=== PATIENT | female | born 1955 | race Caucasian/White ===

== ENCOUNTER 2022-01-30 15:29 | Inpatient (IN) | payer OTHER, SELFPAY ==
[2022-01-30] VITALS (12 sets, daily range): BP systolic 101–144; BP diastolic 76–105; PULSE 104–148; RESP 12–20; TEMP 36.4–36.9; O2SAT 93–99; BMI 34.4
--- NOTE | ~2022-01-30 | XR_ITS ---
EXAMINATION: XR chest 2V Exam Date/Time: 01/30/2022 15:55 CDT HISTORY: afib RVR X 1MONTH, SOB X 1 MONTH, NO OTHER CHEST COMPLAINTS Comparison: Screening mammography 02/08/2018. RESULT: Lines, tubes, and devices: None. Lungs and pleura: Senescent change and bibasilar atelectasis/scar. Cardiomediastinal silhouette: Stable. Other: No acute osseous or upper abdominal finding. Bilateral breast soft tissue calcification. IMPRESSION: No acute cardiopulmonary process. Reviewed, dictated and finalized at location K.
--- NOTE | ~2022-01-30 | CT_ITS ---
EXAMINATION: CT abdomen pelvis wo con DATE: 02/01/2022 12:32 INDICATION: Colitis. TECHNIQUE: Computed tomography (CT) of the abdomen and pelvis was performed without intravenous contr ast. Automated exposure control and iterative reconstruction technique were employed. The dose-length product was 921.47 mGy-cm. COMPARISON: CT abdomen and pelvis 06/02/2017 FINDINGS: The visualized portions of the lung bases demonstrate mild atelectasis. There is mild scarr ing in paraspinal right lower lobe. No pleural effusion. The heart size is normal. There are coronary artery calcifications. No pericardial effusion. The liver and spleen are normal. There are changes o f cholecystectomy. The pancreas, adrenal glands, and right kidney are normal. There is a 10 mm cyst i n left kidney. There is no urolithiasis. There is diverticulosis of the colon without evidence of div erticulitis. The appendix is normal. There are no pathologically enlarged lymph nodes. There is no fr ee intraperitoneal fluid. There is a total right hip arthroplasty. There is moderate lumbar spondylos is. IMPRESSION: 1. No specific evidence of colitis. Reviewed, dictated and finalized at location A.
--- NOTE | 2022-01-30 15:35 | ECG_ITS ---
Measurements Intervals [place] Rate: 148 P: IA: 0 QRS: 24 QRSD: 82 T: -42 QT: 283 QTc: 444 Interpretive Statements ATRIAL FIBRILLATION WITH RAPID VENTRICULAR RESPONSE NONSPECIFIC ST & T-WAVE ABNORMALITY ABNORMAL ECG NO PREVIOUS ECG AVAILABLE FOR COMPARISON Electronically Signed On 01-30-2022 17:11:40 CDT by Shiva Rowell M.D.
[2022-01-30 15:46] LABS: Basophils Absolute Auto 0.1 K/mm3 (0.0-0.1); Basophils Percent Auto 0.7 % (0.2-1.2); Eosinophils Absolute Auto 0.1 K/mm3 (0-0.3); Hematocrit 39.6 % (37.0-47.0); Hemoglobin 13.2 g/dL (12.0-15.0); Immature Granulocyte Absolute 0.02 K/mm3 (0.00-0.031); Immature Granulocyte Percent A 0.2 % (0-0.5); Lymphocytes Absolute Auto 1.49 K/mm3 (0.9-3.2); Lymphocytes Percent Auto 17.3 % (18.3-44.2); Mean Corpuscular HGB Conc 33.3 g/dl (32-36); Mean Corpuscular Hemoglobin 31.1 pg (26-34); Mean Corpuscular Volume 93.2 fl (80-100); Monocytes Absolute Auto 0.7 K/mm3 (0.1-0.6); Monocytes Percent Auto 7.6 % (2.6-8.5); Neutrophils Absolute Auto 6.3 K/mm3 (1.3-6.7); Neutrophils Percent Auto 73.2 % (45.5-73.1); Platelet Count Result 268 k/mm3 (150-375); Red Blood Count 4.25 M/mm3 (4.2-5.4); Red Cell Distribution Width 13.7 % (11.5-14.5); White Blood Count 8.6 K/mm3 (4.5-10.0)
[2022-01-30 16:00] LABS: INR 1.1; Prothrombin Time 13.7 Seconds (11.1-14.7)
[2022-01-30 16:02] LABS: Alanine Aminotransferase 27 U/L (6-35); Anion Gap 14 mmol/L (8-16); Aspartate Amino Transferase 48 U/L (14-36); Bilirubin,Total 1.5 mg/dL (0.2-1.3); Blood Urea Nitrogen 15 mg/dL (7-17); Calcium 9.3 mg/dL (8.4-10.2); Carbon Dioxide 28 mmol/L (22-30); Chloride 100 mmol/L (98-107); Estimated CRCL calculation 88 ml/min; Estimated Glomerular Filt Rate > 60; Glucose 121 mg/dL (65-110); Partial Thromboplastin Time 26.6 SECONDS (22.3-36.8); Potassium 3.8 mmol/L (3.4-5.0); Sodium 142 mmol/L (137-145)
[2022-01-30 16:03] LABS: Albumin Level 4.8 g/dL (3.5-5.1); Alkaline Phosphatase 54 U/L (38-126); Lipase 93 U/L (23-300)
[2022-01-30] MEDS: dilTIAZem HCl INJ 25 MG/5 ML VIAL 15 MG IV PUSH (16:08)
[2022-01-30 16:13] LABS: Troponin I 0.015 ng/mL (0.000-0.034)
--- NOTE | 2022-01-30 17:37 | ED.GENADULT ---
HPI - General Adult General Chief complaint: Arrhythmia/Palpitations Stated complaint: afib rvr Time Seen by Provider: 01/30/22 15:37 History of Present Illness HPI narrative: Patient is a 66-year-old female who presents to the ER with diarrhea. Ongoing over the last 2 months. It is worsened the point where she is having 15 loose stools a day. They are large volume and clear/watery. No fevers or chills or sweats. No chest pain. Patient found to be in A. fib RVR here. Patient was recently diagnosed with A. fib RVR in [facility] when she went in to be evaluated for colitis. She has been taking metoprolol. She reports 2 weeks ago she was at [facility] in [place] where she was diagnosed with cholecystitis and once again was in A. fib with RVR. She has not been anticoagulated due to her colitis. She underwent successful surgery and has been at home. Patient has had several courses of antibiotics due to her colitis and her cholecystitis. No history of C. difficile. Her entry rep is Dr. Hutton. Related Data Allergies Allergy/AdvReac Type Severity Reaction Status Date / Time erythromycin base Allergy Unknown SEVERE ABD Verified 01/30/22 15:37 PAIN Penicillins Allergy Unknown RASH Verified 01/30/22 15:37 Review of Systems Review of Systems: All systems reviewed & are unremarkable except as noted in HPI and below Constitutional: Constitutional: Denies chills, Denies fatigue and Denies fever(s) ENT: Denies nasal congestion and Denies sore throat Cardiovascular: Cardiovascular: Denies chest pain, Reports rapid heart rate and Denies radiating jaw, neck or arm pain Gastrointestinal: Gastrointestinal: Denies abdominal pain, Reports diarrhea, Denies nausea and Denies vomiting Genitourinary: Genitourinary: Denies nocturia and Denies dysuria Integumentary/Breasts: Skin/Breast: Denies erythema and Denies rash [facility] Past Medical History Medical History (Updated 01/30/22 @ 18:30 by Andrea Porras MD) Anxiety Atrial fibrillation Breast cancer Depression GERD (gastroesophageal reflux disease) Hypertension Surgical History Surgical History (Updated 01/30/22 @ 18:26 by Andrea Porras MD) History of hip replacement History of hysterectomy History of knee replacement, total History of tonsillectomy Social History Social History (Updated 01/30/22 @ 18:26 by Andrea Porras MD) Smoking status: Never smoker Exam Narrative: GENERAL: Well-appearing, well-nourished, and in no acute distress. HEAD: Normocephalic, atraumatic. ENT: Mucous membranes moist. CHEST: Clear to auscultation. No respiratory distress. HEART: Irregular regular rate and rhythm that is tachycardic. Normal peripheral pulses. ABDOMEN: Soft, nontender, nondistended. EXTREMITIES: Normal range of motion. No edema. SKIN: Warm, dry, no rash. NEURO: Alert and oriented x3. PSYCH: Normal mood and affect. Course Course Emergency Course: Patient resting comfortably. Difficulty controlling heart rate despite IV push of diltiazem. Will place on a drip. Also have requested patient to provide a stool sample as I am concerned she may have C. difficile colitis given her frequent large-volume watery stools. Vital Signs Vital signs: Vital Signs Pulse Rate 147 H 01/30/22 15:31 Respiratory Rate 13 01/30/22 15:31 Blood Pressure 144/105 H 01/30/22 15:31 Pulse Oximetry 99 01/30/22 15:31 Oxygen Delivery Room Air 01/30/22 15:31 Pulse Rate 130 H 01/30/22 18:06 Respiratory Rate 13 01/30/22 18:06 Blood Pressure 125/76 01/30/22 18:06 Pulse Oximetry 97 01/30/22 18:06 Oxygen Delivery Room Air 01/30/22 15:31 Medical Decision Making Vital Signs Vital Signs: Vital Signs Pulse Rate 147 H 01/30/22 15:31 Respiratory Rate 13 01/30/22 15:31 Blood Pressure 144/105 H 01/30/22 15:31 Pulse Oximetry 99 01/30/22 15:31 Oxygen Delivery Room Air 01/30/22 15:31 Pulse Rate 130 H
[2022-01-30] MEDS: dilTIAZem 100 MG/100 ML 100 MG/100 ML BAG IV CONT (17:46)
[2022-01-30] MEDS: dilTIAZem HCl INJ 25 MG/5 ML VIAL 10 MG IV PUSH (17:59)
[2022-01-30] MEDS: MORPHINE SULFATE (*CRX) 4 MG/ML INJ IV PUSH (18:02)
--- NOTE | 2022-01-30 18:48 | ADMGEN ---
This patient, Kacey Foster, was admitted to IMU Room 210-01. Patient/family oriented to hospital policies and general routines including ID bracelet, bed and alarms, visiting hours, pain management, procedures, bathroom and other care routines, personal items, smoking policy, room service/diet, and visiting hours. Information on how to activate the Rapid Response Team has been discussed. Patient/Family are encouraged to report perceived risks to care and to ask questions if they do not understand what they are told or what they should do.
--- NOTE | 2022-01-30 20:30 | PM.IMHP ---
H&P: HPI History of Present Illness Date/Time: 01/30/22 20:30 Chief Complaint: Diarrhea, rapid heart rate. Narrative: This is a pleasant 66-year-old with a relatively recent diagnosis of paroxysmal atrial fibrillation, hypertension, hyperlipidemia, hypothyroidism, and chronic pain syndrome who presented to the emergency department from her primary care provider's for evaluation of diarrhea and rapid heart rate. About a month ago she was visiting [place], [place] and she developed diarrhea and rectal bleeding. She was hospitalized at [facility] and the bleeding was attributed to what sounds like infectious colitis. During that stay she was also noted to be in atrial fibrillation with rapid ventricular response which was a new diagnosis for her and she really had no symptoms. She was discharged on metoprolol but was not given anticoagulation due to the GI bleeding. She completed a course of antibiotics with resolution of her symptoms however about 2 weeks thereafter she once again developed abdominal pain. She was hospitalized at [facility] in [place] where she ended up having a laparoscopic cholecystectomy for cholecystitis. She saw her surgeon in follow-up last week and everything was looking good. Unfortunately on Saturday morning she awoke from sleep with abdominal cramping and she reports having innumerable bouts of malodorous, bright yellow liquid diarrhea. Later that evening she developed nausea and had several episodes of projectile vomiting. She has not had much to eat since that time and due to ongoing diarrhea and weakness she made an appointment with her doctor today. In clinic she was once again found to be in atrial fibrillation with rapid ventricular response and was sent to the ER where she was started on a Cardizem drip with improvement in her rate. She has no sensations of fluttering, racing heart, shortness of breath, etc. I believe she has been taking metoprolol succinate 25 milligrams daily and she reports taking that this morning. At the time my evaluation her main complaint is that of abdominal cramping and discomfort in the left lower quadrant. She has not been on antibiotics for a couple of weeks. She has no known history of C diff. She had a colonoscopy several years ago and has no known history of inflammatory bowel disease. She has not eaten much last couple of days but she is feeling better at this time and is asking for food. Her diarrhea has slowed down somewhat today. She has not had any vomiting for well over 12 hours. She also denies fever, chills, and sweats. She has not noticed any blood or mucus in the stool. Review of Systems Review of Systems: Twelve systems were reviewed. Weight has remained stable. No history of sleep apnea. She does snore loudly and reports that she has exhausted almost all day. She does not fall asleep at inopportune times. No significant caffeine use. She drinks 1 to 2 mixed drinks most nights of the week. She believes that her TSH was normal recently. She has not had exertional chest pain or shortness of breath. No syncope or presyncope. No hematemesis, melena, or hematochezia. She has noticed a small amount of mucus in the stool. She has chronic neck and back pain and is on long-term opiates. Except as documented, all other systems were reviewed and are negative. [facility] Past Medical History Medical History (Updated 01/30/22 @ 21:42 by Renetta Mike PA-C) Anxiety Cancer of right breast Status post lumpectomy and radiation therapy. Chronic pain syndrome Chronic prescription opiate use Depression Gastric ulcer Gastroesophageal reflux disease Hepatitis C Secondary to blood transfusion received in 1973. She completed treatment in 2013. Hyperlipidemia Hypertension Hypothyroidism Paroxysmal atrial fibrillation Surgical History Surgical History (Updated 01/30/22 @ 21:34 by Renetta Mike PA-C) History of bilateral knee replacement History of cataract extrac
[2022-01-30] MEDS: MORPHINE SULFATE (*CRX) 4 MG/ML INJ 2 MG IV PUSH (21:38)
[2022-01-30] MEDS: METOPROLOL TARTRATE 50 MG TAB PO (21:59)
[2022-01-30 22:20] LABS: CRP 0.8 mg/dL (<1.0); Magnesium 1.7 mg/dL (1.6-2.3)
[2022-01-30 22:29] LABS: Troponin I 0.029 ng/mL (0.000-0.034)
[2022-01-30] MEDS: HYDROcodone/acetaminophen (*CRX) 10-325 MG TABLET 1 TAB PO (22:51)
[2022-01-30] MEDS: QUEtiapine FUMARATE 100 MG TABLET PO (22:52)
[2022-01-30] MEDS: hydrOXYzine HCL 25 MG TABLET PO (22:52)
[2022-01-30] MEDS: GABAPENTIN 300 MG CAPSULE 900 MG PO (22:52)
[2022-01-31] VITALS (19 sets, daily range): BP systolic 100–125; BP diastolic 60–78; PULSE 52–114; RESP 18–22; TEMP 36.1–36.5; O2SAT 92–100
[2022-01-31] MEDS: dilTIAZem 100 MG/100 ML 100 MG/100 ML BAG 10 MG IV CONT (02:06)
[2022-01-31] MEDS: LEVOTHYROXINE SODIUM 50 MCG TABLET PO (06:29)
[2022-01-31 06:45] LABS: Free T4 Free Thyroxine Reflex 1.25 ng/dL (0.78-2.19)
[2022-01-31] MEDS: SODIUM CHLORIDE 0.9% IV 250 ML 999 ML IV CONT (06:52)
[2022-01-31 07:44] LABS: Total Triiodothyronine (T3) 1.05 NG/ML (0.97-1.69)
[2022-01-31] MEDS: METOPROLOL TARTRATE 50 MG TAB PO ×3 (08:44→20:43)
[2022-01-31] MEDS: GABAPENTIN 300 MG CAPSULE 600 MG PO (08:44)
[2022-01-31] MEDS: ATORVASTATIN 20 MG TABLET PO (08:45)
[2022-01-31] MEDS: FUROSEMIDE 40 MG TABLET PO (08:45)
[2022-01-31 09:39] LABS: Basophils Percent Auto 0.7 % (0.2-1.2); Eosinophils Absolute Auto 0.3 K/mm3 (0-0.3); Eosinophils Percent Auto 4.9 % (0-4.4); Hematocrit 35.7 % (37.0-47.0); Hemoglobin 11.4 g/dL (12.0-15.0); Immature Granulocyte Absolute 0.01 K/mm3 (0.00-0.031); Immature Granulocyte Percent A 0.2 % (0-0.5); Lymphocytes Absolute Auto 1.82 K/mm3 (0.9-3.2); Lymphocytes Percent Auto 30.5 % (18.3-44.2); Mean Corpuscular HGB Conc 31.9 g/dl (32-36); Mean Corpuscular Hemoglobin 30.9 pg (26-34); Mean Corpuscular Volume 96.7 fl (80-100); Mean Platelet Volume 9.8 fl (7.4-10.4); Monocytes Absolute Auto 0.4 K/mm3 (0.1-0.6); Monocytes Percent Auto 6.9 % (2.6-8.5); Neutrophils Absolute Auto 3.4 K/mm3 (1.3-6.7); Neutrophils Percent Auto 56.8 % (45.5-73.1); Platelet Count Result 245 k/mm3 (150-375); Red Blood Count 3.69 M/mm3 (4.2-5.4); Red Cell Distribution Width 14.2 % (11.5-14.5)
[2022-01-31 09:55] LABS: Anion Gap 10 mmol/L (8-16); Blood Urea Nitrogen 16 mg/dL (7-17); Calcium 8.6 mg/dL (8.4-10.2); Carbon Dioxide 29 mmol/L (22-30); Chloride 102 mmol/L (98-107); Estimated CRCL calculation 75 ml/min; Estimated Glomerular Filt Rate > 60; Glucose 124 mg/dL (65-110); Potassium 3.1 mmol/L (3.4-5.0); Sodium 141 mmol/L (137-145)
--- NOTE | 2022-01-31 10:35 | PM.CNCAR ---
Assessment and Plan Assessment and plan (1) Atrial fibrillation with rapid ventricular response: Code(s): I48.91 - Unspecified atrial fibrillation Status: Acute Assessment and Plan: Minimally symptomatic heart rate exacerbated due to acute illness under much better control intravenous diltiazem and oral metoprolol. Will wean diltiazem infusion to 5 milligrams/hour then discontinue and observe tolerance on metoprolol tartrate 50 mg twice daily. Discussed likely need up titrate beta-kim therapy for adequate heart rate control although anticipate this will improve as her clinical status stabilizes. Monitor and replete electrolytes keep potassium 4.0 and magnesium in 2.0. Hold Lasix for now as patient high risk for dehydration. CHADS2-Vasc score 3 (female, age >65, HTN). Systemic anticoagulation is appropriate for CV risk reduction. We did discussed ongoing risk for stroke without anticoagulation given persistence of atrial fibrillation. I suspect clinically she has been in persistent AFib since diagnosis and she is not a candidate for cardioversion unless she can be anticoagulated. (2) Hypothyroidism: Code(s): E03.9 - Hypothyroidism, unspecified Status: Acute Assessment and Plan: Mild TSH elevation around 6 likely subclinical. Defer management to primary service. (3) Diarrhea: Code(s): R19.7 - Diarrhea, unspecified Status: Acute Assessment and Plan: Clinical suspicion related to colitis of unknown etiology. Consider GI consultation, endoscopy as appropriate. Further workup defer to primary service and GI. No leukocytosis, H&H stable. (4) History of GI bleed: Code(s): Z87.19 - Personal history of other diseases of the digestive system Status: Acute Assessment and Plan: H&H stable, right mild anemia. No evidence for active bleed. She may be a reasonable candidate for anticoagulation, however, given her recent GIB workup to day this remains unclear. Furthermore, the decision to avoid anticoagulation has been made previously and infact referred for Watchman (VERO occlusion device options) as an outpatient. History of Present Illness History of Present Illness Consult date/time: Date of service: 01/31/22 10:35 Requesting physician: Renetta Mike PA-C Consult reason: atrial fibrillation Reason For Visit: AFIB RVR, Suspected C. Diff Narrative: Patient is a pleasant 66-year-old female with a recent diagnosis of paroxysmal atrial fibrillation followed by Dr. Hutton as an outpatient in the office referred for left atrial appendage occlusion device considerations at [facility], hypertension, hyperlipidemia, hypothyroidism, chronic pain presented emergency department at the request of her primary care physician for worsening diarrhea, abdominal pain and found to be tachycardic in atrial fibrillation. She has had a complicated recent history where she was initially admitted in [facility] with complaints of severe diarrhea as well as bright red blood per rectum. Patient does not report requiring blood transfusion. She does report remote history many years ago of peptic ulcer without bleeding. She was diagnosed with colitis possibly infectious for which she improved with management. She was noted to that time to be in atrial fibrillation RVR which is a new diagnosis. She was aware of intermittent palpitations and mild shortness of breath and felt that this was just related to her illness. She was sent home on metoprolol but was not given anticoagulation due to concern for GI bleeding. Her symptoms resolved after antibiotics but then recurred approximately 2 weeks later with severe pain diarrhea once again. She was then hospitalized in [facility] for which she was diagnosed with acute cholecystitis having undergone a laparoscopic cholecystectomy. Again she improved this perspective but then had rather rapid onset of severe abdominal pain mul
[2022-01-31] MEDS: MAGNESIUM SULF 2 GM/WATER 50ML 2 GM/50 ML BAG IVPB (12:20)
[2022-01-31] MEDS: HYDROcodone/acetaminophen (*CRX) 10-325 MG TABLET 1 TAB PO ×3 (12:21→20:44)
[2022-01-31] MEDS: POTASSIUM CHLORIDE 20 MEQ TABLET 40 MEQ PO (12:21)
--- NOTE | 2022-01-31 13:59 | PM.IMPN ---
Progress Note: A&P Assessment and Plan (1) Atrial fibrillation with rapid ventricular response: Code(s): I48.91 - Unspecified atrial fibrillation Status: Acute Assessment and Plan: Appreciate Cardiology consult. Wean off diltiazem drip. no anticoagulation secondary to recent GI bleed. Patient was previously recommended for a Watchman device (2) Diarrhea: Code(s): R19.7 - Diarrhea, unspecified Status: Acute Assessment and Plan: C diff pending. 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 Exam Narrative: General: Well-developed female supine in bed. Weight: 91.1 kilograms. BMI: 34.5. HEENT: PERRL, EOMI. Sclera anicteric. Tacky mucous membranes. Neck: Supple. No lymphadenopathy or JVD. Respiratory: Respirations are nonlabored and lungs are clear to auscultation. Cardiovascular: Irregular regular rate and rhythm. Gastrointestinal: Abdomen is soft and nondistended with positive bowel sounds. She is tender to deeper palpation the left lower quadrant. Mild voluntary guarding, no rebound tenderness. Skin: Warm and dry. No rash or lesions on limited exam. Extremities: No cyanosis, clubbing, or edema. Radial and pedal pulses intact. Neurological: Alert. Cranial nerves 2-12 are grossly intact. No gross focal deficits to casual conversation. Psychiatric: Pleasant and cooperative with normal mood and affect. Judgment and insight intact. Objective Data Vital Signs Vital Signs: Vital Signs - 24 hr 01/30/22 15:31 01/30/22 17:05 01/30/22 17:46 Temperature Pulse Rate 147 H 121 H 148 H Respiratory Rate 13 20 Blood Pressure 144/105 H 101/86 116/101 H Pulse Oximetry 99 97 Oxygen Delivery Room Air 01/30/22 18:01 01/30/22 18:06 01/30/22 18:30 Temperature Pulse Rate 137 H 130 H 128 H Respiratory Rate 12 13 12 Blood Pressure 125/76 121/97 H Pulse Oximetry 97 97 97 Oxygen Delivery 01/30/22 18:30 01/30/22 18:56 01/30/22 20:00 Temperature 98.5 F 97.6 F Pulse Rate 121 H 139 H 118 H Respiratory Rate 19 16 Blood Pressure 121/97 H 137/97 H 128/96 H Pulse Oximetry 93 99 Oxygen Delivery 01/30/22 21:59 01/30/22 20:00 01/30/22 23:07 Temperature Pulse Rate 119 H Respiratory Rate Blood Pressure Pulse Oximetry 96 Oxygen Delivery Room Air Room Air 01/30/22 23:38 01/30/22 23:00 01/30/22 20:00 Temperature 98.0 F Pulse Rate 104 H 133 H Respiratory Rate 16 Blood Pressure 118/93 H Pulse Oximetry 97 Oxygen Delivery Room Air 01/30/22 22:00 01/31/22 00:00 01/31/22 02:00 Temperature Pulse Rate 127 H 87 90 Respiratory Rate Blood Pressure Pulse Oximetry Oxygen Delivery 01/31/22 02:06 01/31/22 04:00 01/31/22 04:00 Temperature Pulse Rate 90 83 Respiratory Rate Blood Pressure Pulse Oximetry Oxygen Delivery Room Air 01/31/22 04:00 01/31/22 05:24 01/31/22 06:00 Temperature 97.6 F Pulse Rate 80 89 90 Respiratory Rate 20 Blood Pressure 100/60 Pulse Oximetry 92 Oxygen Delivery 01/31/22 07:59 01/31/22 08:44 01/31/22 08:00 Temperature 97.7 F Pulse Rate 88 89 Respiratory Rate 20 Blood Pressure 103/64 Pulse Oximetry 96 96 Oxygen Delivery Room Air 1
[2022-01-31 15:44] LABS: IFOB Positive Control Positive; Immunochemical Fecal Occult Bl Negative (N)
[2022-01-31 17:47] LABS: Magnesium 2.2 mg/dL (1.6-2.3)
[2022-01-31 17:48] LABS: Alanine Aminotransferase 25 U/L (6-35); Albumin Level 4.3 g/dL (3.5-5.1); Alkaline Phosphatase 61 U/L (38-126); Anion Gap 10 mmol/L (8-16); Aspartate Amino Transferase 36 U/L (14-36); Bilirubin,Total 0.8 mg/dL (0.2-1.3); Blood Urea Nitrogen 14 mg/dL (7-17); Calcium 8.7 mg/dL (8.4-10.2); Carbon Dioxide 27 mmol/L (22-30); Chloride 102 mmol/L (98-107); Estimated CRCL calculation 75 ml/min; Estimated Glomerular Filt Rate > 60; Glucose 130 mg/dL (65-110); Potassium 3.6 mmol/L (3.4-5.0); Sodium 139 mmol/L (137-145)
[2022-01-31] MEDS: hydrOXYzine HCL 25 MG TABLET PO (20:43)
[2022-01-31] MEDS: GABAPENTIN 300 MG CAPSULE 900 MG PO (20:43)
[2022-01-31] MEDS: QUEtiapine FUMARATE 100 MG TABLET PO (20:44)
[2022-01-31] MEDS: MORPHINE SULFATE (*CRX) 4 MG/ML INJ 2 MG IV PUSH (23:52)
[2022-02-01] VITALS (11 sets, daily range): BP systolic 100–122; BP diastolic 67–91; PULSE 51–130; RESP 18–22; TEMP 35.8–36.6; O2SAT 92–96
[2022-02-01] MEDS: HYDROcodone/acetaminophen (*CRX) 10-325 MG TABLET 1 TAB PO ×4 (02:20→20:01)
[2022-02-01] MEDS: METOPROLOL TARTRATE 50 MG TAB PO (06:20)
[2022-02-01] MEDS: LEVOTHYROXINE SODIUM 50 MCG TABLET PO (06:20)
[2022-02-01 07:49] LABS: Basophils Percent Auto 0.6 % (0.2-1.2); Eosinophils Absolute Auto 0.5 K/mm3 (0-0.3); Eosinophils Percent Auto 10.4 % (0-4.4); Hematocrit 36.5 % (37.0-47.0); Hemoglobin 12.1 g/dL (12.0-15.0); Immature Granulocyte Absolute 0.01 K/mm3 (0.00-0.031); Immature Granulocyte Percent A 0.2 % (0-0.5); Lymphocytes Absolute Auto 1.73 K/mm3 (0.9-3.2); Lymphocytes Percent Auto 33.4 % (18.3-44.2); Mean Corpuscular HGB Conc 33.2 g/dl (32-36); Mean Corpuscular Hemoglobin 31.2 pg (26-34); Mean Corpuscular Volume 94.1 fl (80-100); Monocytes Absolute Auto 0.4 K/mm3 (0.1-0.6); Monocytes Percent Auto 8.3 % (2.6-8.5); Neutrophils Absolute Auto 2.4 K/mm3 (1.3-6.7); Neutrophils Percent Auto 47.1 % (45.5-73.1); Platelet Count Result 216 k/mm3 (150-375); Red Blood Count 3.88 M/mm3 (4.2-5.4); Red Cell Distribution Width 13.5 % (11.5-14.5); White Blood Count 5.2 K/mm3 (4.5-10.0)
[2022-02-01 08:04] LABS: Anion Gap 8 mmol/L (8-16); Blood Urea Nitrogen 12 mg/dL (7-17); Calcium 8.6 mg/dL (8.4-10.2); Carbon Dioxide 26 mmol/L (22-30); Chloride 102 mmol/L (98-107); Estimated CRCL calculation 86 ml/min; Estimated Glomerular Filt Rate > 60; Glucose 106 mg/dL (65-110); Potassium 3.5 mmol/L (3.4-5.0); Sodium 136 mmol/L (137-145)
[2022-02-01] MEDS: GABAPENTIN 300 MG CAPSULE 600 MG PO (08:57)
[2022-02-01] MEDS: ATORVASTATIN 20 MG TABLET PO (08:57)
[2022-02-01] MEDS: FUROSEMIDE 40 MG TABLET PO (08:57)
--- NOTE | 2022-02-01 10:32 | PM.PNCARD ---
Progress Note: A&P Assessment and Plan (1) Atrial fibrillation with rapid ventricular response: Code(s): I48.91 - Unspecified atrial fibrillation Status: Acute Assessment and Plan: Heart rate remains suboptimally controlled. Metoprolol increased to 75 mg p.o. q.8. If heart rate remains poorly controlled I would change metoprolol tartrate to 100 mg p.o. q.12 hour and a add diltiazem 30 mg p.o. q.8 hours with plans to transition to long-term daily dosing tomorrow if heart rate better controlled on present regimen. Clearly, given low dose of metoprolol at admission from prior hospitalizations I highly suspect her AFib has not been acceptably rate controlled. Would like to initiate systemic anticoagulation until further clarification from GI perspective we are hesitant to do so due to history of recent lower GI bleed. She is not presently anemic and denies active bleeding but she still complains of ongoing colitis symptoms without recent evaluation. CHADS2-Vasc score 3 (female, age >65, HTN). Systemic anticoagulation is appropriate for CV risk reduction. We did discussed ongoing risk for stroke without anticoagulation given persistence of atrial fibrillation. I suspect clinically she has been in persistent AFib since diagnosis and she is not a candidate for cardioversion unless she can be anticoagulated. (2) Diarrhea: Code(s): R19.7 - Diarrhea, unspecified Status: Acute Assessment and Plan: Clinical suspicion related to colitis of unknown etiology. GI consultation, endoscopy as appropriate. Further workup defer to primary service and GI. No leukocytosis, H&H stable. Will be very helpful in determining level risk for anticoagulation due to stroke risk for AFib. (3) History of GI bleed: Code(s): Z87.19 - Personal history of other diseases of the digestive system Status: Acute Assessment and Plan: H&H stable, right mild anemia. No evidence for active bleed. She may be a reasonable candidate for anticoagulation, however, given her recent GIB workup to day this remains unclear. Furthermore, the decision to avoid anticoagulation has been made previously and infact referred for Watchman (VERO occlusion device options) as an outpatient. As above. (4) Hypothyroidism: Code(s): E03.9 - Hypothyroidism, unspecified Status: Acute Assessment and Plan: Mild TSH elevation around 6 likely subclinical. Defer management to primary service. Subjective Date/time seen: Date of service: 02/01/22 10:32 Follow-up for AFib with RVR Patient feels okay. Denies palpitations. More tachycardic this morning in AFib with heart rate ranging from 100 to 140s at rest. Denies chest pain or shortness of breath. No dizziness. Denies diarrhea but admits to loose her stool continued mild abdominal discomfort. No bleeding. Review of Systems Review of Systems: All systems reviewed & are unremarkable except as noted in HPI and below Constitutional: Constitutional: Reports as per HPI and Reports no additional constitutional complaints Eyes: Eyes: Reports as per HPI and Reports no additional eye complaints ENT: Reports system reviewed and no additional complaints, except as documented and Reports as per HPI Cardiovascular: Cardiovascular: Reports as per HPI and Reports no additional cardiovascular complaints Respiratory: Respiratory: Reports as per HPI and Reports no additional respiratory complaints Gastrointestinal: Gastrointestinal: Reports as per HPI and Reports no additional gastrointestinal complaints Genitourinary: Genitourinary: Reports as per HPI Musculoskeletal: Musculoskeletal: Reports no additional musculoskeletal complaints and Reports as per HPI Integumentary/Breasts: Skin/Breast: Reports system reviewed and no additional complaints, except as docu and Reports as per HPI Neurologic: Reports system reviewed and no additional complaints, except as documented and Reports as per
--- NOTE | 2022-02-01 11:15 | PM.IMPN ---
Progress Note: A&P Assessment and Plan (1) Atrial fibrillation with rapid ventricular response: Code(s): I48.91 - Unspecified atrial fibrillation Status: Acute Assessment and Plan: Appreciate Cardiology consult. Wean off diltiazem drip. no anticoagulation secondary to recent GI bleed. Patient was previously recommended for a Watchman device (2) Diarrhea: Code(s): R19.7 - Diarrhea, unspecified Status: Acute Assessment and Plan: C diff pending. Diarrhea improving GI consult as patient has had 3 admissions in the last year for lower GI bleed. may need colonoscopy prior to starting anticoagulation for AFib (3) Elevated LFTs: Code(s): R79.89 - Other specified abnormal findings of blood chemistry Status: Acute Assessment and Plan: monitor (4) Hypothyroidism: Code(s): E03.9 - Hypothyroidism, unspecified Status: Acute Assessment and Plan: continue home meds (5) Chronic pain syndrome: Code(s): G89.4 - Chronic pain syndrome Status: Acute (6) Chronic prescription opiate use: Code(s): Z79.891 - custodial (current) use of opiate analgesic Status: Acute (7) Hypertension: Code(s): I10 - Essential (primary) hypertension Status: Chronic Assessment and Plan: monitor blood pressure Subjective Date/time seen: 02/01/22 11:15 breathing better Exam Narrative: General: Well-developed female supine in bed. Weight: 91.1 kilograms. BMI: 34.5. HEENT: PERRL, EOMI. Sclera anicteric. Tacky mucous membranes. Neck: Supple. No lymphadenopathy or JVD. Respiratory: Respirations are nonlabored and lungs are clear to auscultation. Cardiovascular: Irregular regular rate and rhythm. Gastrointestinal: Abdomen is soft and nondistended with positive bowel sounds. She is tender to deeper palpation the left lower quadrant. Mild voluntary guarding, no rebound tenderness. Skin: Warm and dry. No rash or lesions on limited exam. Extremities: No cyanosis, clubbing, or edema. Radial and pedal pulses intact. Neurological: Alert. Cranial nerves 2-12 are grossly intact. No gross focal deficits to casual conversation. Psychiatric: Pleasant and cooperative with normal mood and affect. Judgment and insight intact. Objective Data Vital Signs Vital Signs: Vital Signs - 24 hr 01/31/22 12:31 01/31/22 12:00 01/31/22 12:00 Temperature 97.3 F L Pulse Rate 85 70 Respiratory Rate 20 Blood Pressure 106/68 Pulse Oximetry 96 96 Oxygen Delivery Room Air 01/31/22 14:00 01/31/22 16:32 01/31/22 16:41 Temperature 97.0 F L Pulse Rate 114 H 90 52 L Respiratory Rate 22 H Blood Pressure 125/63 Pulse Oximetry 100 Oxygen Delivery 01/31/22 20:43 01/31/22 21:16 01/31/22 20:00 Temperature 97.6 F Pulse Rate 101 H 102 H Respiratory Rate 18 Blood Pressure 112/78 Pulse Oximetry 94 97 Oxygen Delivery Room Air 02/01/22 00:00 02/01/22 06:20 02/01/22 07:57 Temperature 97.8 F 97.9 F Pulse Rate 100 115 H 120 H Respiratory Rate 18 22 H Blood Pressure 100/71 122/91 H Pulse Oximetry 96 94 Oxygen Delivery Intake/Output Intake/Output: Intake & Output 01/29/22 01/30/22 01/31/22 02/01/22 23:59 23:59 23:59 23:59 Intake Total 2133 720 Output Total 675 700 Balance 1458 20 Meds/Results Medications: Active Medications Generic Name Dose Route Start Last Admin Trade Name Freq PRN Reason Stop Dose Admin Acetaminophen 650 mg 01/30/22 17:41 Acetaminophen 325 Mg Tablet PO Q4H PRN Mild Pain (1-3) or Fever Hydrocodone Bitart/Acetaminophen 1 tab 01/30/22 21:54 02/01/22 10:41 Hydrocodone/Acetaminophen (*Crx) 10-325 Mg Tablet PO 1 tab Q4-6H PRN Administration Pain (Scale Score 4-6) Atorvastatin Calcium 20 mg 01/31/22 09:00 02/01/22 08:57 Atorvastatin 20 Mg Tablet PO 20 mg DAILY ERI Administration Furosemide 40 mg 01/31/22 09:00
[2022-02-01] MEDS: MORPHINE SULFATE (*CRX) 4 MG/ML INJ 2 MG IV PUSH ×3 (11:35→20:49)
[2022-02-01] MEDS: METOPROLOL TARTRATE 25 MG TABLET PO (12:06)
[2022-02-01] MEDS: METOPROLOL TARTRATE 25 MG TABLET 75 MG PO ×2 (13:59→20:01)
--- NOTE | 2022-02-01 14:43 | PC.NURSE ---
On 02/01/22, the student, [Thea Martinez], provided care and completed [facility] documentation on this patient. I have reviewed the student's documentation and agree with the findings.
--- NOTE | 2022-02-01 15:30 | WPDGICN ---
Assessment and Plan Assessment and plan (1) Diarrhea: Code(s): R19.7 - Diarrhea, unspecified Status: Acute Assessment and Plan: Patient complains of ongoing diarrhea. Her history is rather convoluted. Apparently thought to have had infection previously. CT scan reveals no evidence of colitis stool Hemoccult negative. Recommend stool cultures be obtained. Based on these results consider repeat broad-spectrum antibiotic coverage. Elective outpatient colonoscopy can be arranged. Should patient remain hospitalized then colonoscopy can be performed next week. (2) History of GI bleed: Code(s): Z87.19 - Personal history of other diseases of the digestive system Status: Acute Assessment and Plan: Patient gives a history of several GI bleeding episodes. These appear to be episodes of bloody diarrhea presumably related to colitis although old records are not immediately available can be reviewed when possible. Most likely an infectious etiology given history she gives. (3) Atrial fibrillation with rapid ventricular response: Code(s): I48.91 - Unspecified atrial fibrillation Status: Acute Assessment and Plan: Patient with intermittent paroxysmal atrial fibrillation. Anticoagulation should probably be held given her history of significant bleeding over this last year. GI Consult Note Consult date/time: 02/01/22 15:30 Reason for consult: Diarrhea HPI: Kacey Foster is a 66 year old female I have been asked to see at the request the hospitalist service because of colitis period patient has a history of breast cancer. Patient gives a very long and convoluted history. Currently admitted to the hospital because of worsening diarrhea. Patient reports that 1 year ago her history changed with episode of bloody diarrhea. This prompted admission to [facility] during that hospital stay she was treated for colitis after a CT scan . She apparently was given antibiotics. Patient apparently did well until November of this year while traveling to [place] on business she experience rather sudden onset of diarrhea. This became bloody. She presented to a hospital in [place] where a CT scan apparently showed colitis. During that hospital stay she was identified as having paroxysmal atrial fibrillation. Exact workup and treatment are very unclear according to the patient. Two weeks ago upon returning to her home area she developed abdominal pain was again admitted to [facility] and was treated for acute cholecystitis. Apparently surgical therapy was accomplished. Patient reports the diarrhea persisted in intensified. This prompted her to come to [facility] yesterday. Patient is now admitted for further evaluation and therapy. Stool in the ER is negative for blood. CT scan reveals no evidence of active colitis. Patient reports most recent colonoscopy by Dr. Silva 3 years ago was unremarkable. Review of Systems Review of Systems: Review of systems noncontributory. [facility] Past Medical History Medical History Anxiety Cancer of right breast Status post lumpectomy and radiation therapy. Chronic pain syndrome Chronic prescription opiate use Depression Gastric ulcer Gastroesophageal reflux disease Hepatitis C Secondary to blood transfusion received in 1973. She completed treatment in 2013. Hyperlipidemia Hypertension Hypothyroidism Paroxysmal atrial fibrillation Surgical History Surgical History History of bilateral knee replacement History of cataract extraction with lens replacement History of dilation and curettage History of hip replacement History of hysterectomy History of liver biopsy History of lumpectomy of right breast History of tonsillectomy Family History Family History (Reviewed 01/31/22 @ 14:18 by Shiva Rowell
[2022-02-01] MEDS: GABAPENTIN 300 MG CAPSULE 900 MG PO (20:00)
[2022-02-01] MEDS: QUEtiapine FUMARATE 100 MG TABLET PO (20:01)
[2022-02-01] MEDS: hydrOXYzine HCL 25 MG TABLET PO (20:02)
--- NOTE | 2022-02-01 20:36 | PC.NURSE ---
2034 -Report was called to ESTHER Underwood on Med Surg. SBAR sent as well. Patient going to room 321 by wheelchair.
[2022-02-02] VITALS (10 sets, daily range): BP systolic 114–125; BP diastolic 62–86; PULSE 56–128; RESP 14–16; TEMP 36.1–36.2; O2SAT 95–96
[2022-02-02] MEDS: LEVOTHYROXINE SODIUM 50 MCG TABLET PO (05:34)
[2022-02-02] MEDS: METOPROLOL TARTRATE 25 MG TABLET 75 MG PO (05:35)
[2022-02-02 07:57] LABS: Basophils Absolute Auto 0.1 K/mm3 (0.0-0.1); Basophils Percent Auto 0.9 % (0.2-1.2); Eosinophils Absolute Auto 0.6 K/mm3 (0-0.3); Hematocrit 38.7 % (37.0-47.0); Hemoglobin 12.9 g/dL (12.0-15.0); Immature Granulocyte Absolute 0.01 K/mm3 (0.00-0.031); Immature Granulocyte Percent A 0.2 % (0-0.5); Lymphocytes Absolute Auto 1.64 K/mm3 (0.9-3.2); Lymphocytes Percent Auto 29.8 % (18.3-44.2); Mean Corpuscular HGB Conc 33.3 g/dl (32-36); Mean Corpuscular Hemoglobin 31.1 pg (26-34); Mean Corpuscular Volume 93.3 fl (80-100); Mean Platelet Volume 9.1 fl (7.4-10.4); Monocytes Absolute Auto 0.4 K/mm3 (0.1-0.6); Monocytes Percent Auto 7.5 % (2.6-8.5); Neutrophils Absolute Auto 2.8 K/mm3 (1.3-6.7); Neutrophils Percent Auto 51.6 % (45.5-73.1); Platelet Count Result 247 k/mm3 (150-375); Red Blood Count 4.15 M/mm3 (4.2-5.4); Red Cell Distribution Width 13.4 % (11.5-14.5); White Blood Count 5.5 K/mm3 (4.5-10.0)
[2022-02-02] MEDS: FUROSEMIDE 40 MG TABLET PO (07:59)
[2022-02-02] MEDS: ATORVASTATIN 20 MG TABLET PO (07:59)
[2022-02-02] MEDS: GABAPENTIN 300 MG CAPSULE 600 MG PO (08:00)
[2022-02-02 08:29] LABS: Anion Gap 11 mmol/L (8-16); Blood Urea Nitrogen 12 mg/dL (7-17); Calcium 9.4 mg/dL (8.4-10.2); Carbon Dioxide 27 mmol/L (22-30); Chloride 104 mmol/L (98-107); Estimated CRCL calculation 89 ml/min; Estimated Glomerular Filt Rate > 60; Glucose 115 mg/dL (65-110); Potassium 3.7 mmol/L (3.4-5.0); Sodium 142 mmol/L (137-145)
--- NOTE | 2022-02-02 08:56 | WPDGIPROGNO ---
Progress Note: A&P Assessment and Plan (1) Diarrhea: Code(s): R19.7 - Diarrhea, unspecified Status: Acute Assessment and Plan: Patient with diarrhea. Plan to obtain stool cultures. Stool for C difficile still pending. Other cultures also pending. Would add fiber to her diet. Consider elective outpatient colonoscopy. Patient could be discharged from my perspective. (2) Atrial fibrillation with RVR: Code(s): I48.91 - Unspecified atrial fibrillation Status: Acute Assessment and Plan: Consider holding anticoagulation cousin prior history of bleeding. (3) History of GI bleed: Code(s): Z87.19 - Personal history of other diseases of the digestive system Status: Acute Assessment and Plan: Patient gives a history of bloody diarrhea at a different institution apparently diagnosed as colitis. CT scan at our institution reveals no residual colitis. Suggest reviewing old records. Presumably this was worked up elsewhere. Elective outpatient colonoscopy can still be considered to evaluate more thoroughly. Stool Hemoccult negative at our institution. Subjective Date/time seen: 02/02/22 08:56 Patient alert more comfortable today. She states her diarrhea has lessened. CT scan reveals no colitis on exam at our institution. Stool cultures remain pending. Review of Systems Review of Systems: Review of systems noncontributory. Exam Narrative: Physical exam reveals patient be alert. Vital signs stable. Comfortable at rest. HEENT exam is unremarkable. Patient anicteric. Lungs are clear. Heart without murmur. Abdomen soft and nontender. Objective Data Vital Signs Vital Signs: Vital Signs - 24 hr 02/01/22 12:06 02/01/22 13:59 02/01/22 12:00 Temperature Pulse Rate 111 H 101 H Respiratory Rate Blood Pressure Pulse Oximetry Oxygen Delivery Room Air 02/01/22 12:00 02/01/22 16:09 02/01/22 16:00 Temperature 97.4 F L Pulse Rate 117 H 121 H 124 H Respiratory Rate 20 Blood Pressure 111/77 Pulse Oximetry 92 Oxygen Delivery 02/01/22 20:01 02/01/22 20:00 02/01/22 20:00 Temperature 97.8 F Pulse Rate 108 H 82 130 H Respiratory Rate 18 Blood Pressure 106/79 Pulse Oximetry 95 Oxygen Delivery 02/01/22 20:00 02/01/22 22:00 02/02/22 00:00 Temperature 96.5 F L Pulse Rate 82 51 L 118 H Respiratory Rate 18 18 Blood Pressure 119/67 Pulse Oximetry 95 95 Oxygen Delivery Room Air 02/02/22 04:00 02/02/22 05:35 02/02/22 06:00 Temperature 96.9 F L Pulse Rate 128 H 124 H 56 L Respiratory Rate 16 Blood Pressure 114/86 Pulse Oximetry 95 Oxygen Delivery Intake/Output Intake/Output: Intake & Output 01/30/22 01/31/22 02/01/22 02/02/22 23:59 23:59 23:59 23:59 Intake Total 2133 1700 300 Output Total 675 1000 Balance 1458 700 300 Meds/Results Medications: Active Medications Generic Name Dose Route Start Last Admin Trade Name Freq PRN Reason Stop Dose Admin Acetaminophen 650 mg 01/30/22 17:41 Acetaminophen 325 Mg Tablet PO Q4H PRN Mild Pain (1-3) or Fever Hydrocodone Bitart/Acetaminophen 1 tab 01/30/22 21:54 02/01/22 20:01 Hydrocodone/Acetaminophen (*Crx) 10-325 Mg Tablet PO 1 tab Q4-6H PRN Administration Pain (Scale Score 4-6) Atorvastatin Calcium 20 mg 01/31/22 09:00 02/02/22 07:59 Atorvastatin 20 Mg Tablet PO 20 mg DAILY ERI Administration Furosemide 40 mg 01/31/22 09:00 02/02/22 07:59 Furosemide 40 Mg Tablet PO 40 mg DAILY ERI Administration Gabapentin 600 mg 01/31/22 09:00 02/02/22 08:00 Gabapentin 300 Mg Capsule PO 600 mg QAM ERI Administration Gabapentin 900 mg 01/30/22 21:55 02/01/22 20:00 Gabapentin 300 Mg Capsule PO 900 mg QHS ERI Administration Hydroxyzine HCl 25 mg 01/30/22 22:00 02/01/22 20:02 Hydroxyzine Hcl 25 Mg Tablet PO 25 mg HS ERI Administration Levothyroxine Sodi
--- NOTE | 2022-02-02 10:04 | PM.PNCARD ---
Progress Note: A&P Assessment and Plan (1) Atrial fibrillation with rapid ventricular response: Code(s): I48.91 - Unspecified atrial fibrillation Status: Acute Assessment and Plan: Heart rate remains suboptimally controlled. Asymptomatic. Increase metoprolol to 100mg q12h Add diltiazem 30mg q8h Monitor BP and HR closely Would like to initiate systemic anticoagulation but until further clarification from GI perspective we are hesitant to do so due to history of recent lower GI bleed. She is not presently anemic and denies active bleeding but she still complains of ongoing colitis symptoms without recent evaluation. CHADS2-Vasc score 3 (female, age >65, HTN). Systemic anticoagulation is appropriate for CV risk reduction. We did discuss ongoing risk for stroke without anticoagulation given persistence of atrial fibrillation. She is not a candidate for cardioversion since we are unable to anticoagulate her. Referral for LAAO device has been sent (2) Diarrhea: Code(s): R19.7 - Diarrhea, unspecified Status: Acute Assessment and Plan: Clinical suspicion related to colitis of unknown etiology. GI consultation, endoscopy as appropriate. Further workup defer to primary service and GI. No leukocytosis, H&H stable. Will be very helpful in determining level risk for anticoagulation due to stroke risk for AFib. (3) History of GI bleed: Code(s): Z87.19 - Personal history of other diseases of the digestive system Status: Acute Assessment and Plan: H&H stable, right mild anemia. No evidence for active bleed. She may be a reasonable candidate for anticoagulation, however, given her recent GIB workup to day this remains unclear. Furthermore, the decision to avoid anticoagulation has been made previously and infact referred for Watchman (VERO occlusion device options) as an outpatient. As above. (4) Hypothyroidism: Code(s): E03.9 - Hypothyroidism, unspecified Status: Acute Assessment and Plan: Mild TSH elevation around 6 likely subclinical. Defer management to primary service. Subjective Date/time seen: 02/02/22 10:04 Cardiology follow up for atrial fibrillation Feeling well this morning. She denies complaints of any kind. Specifically denies any palpitations or shortness of breath. No chest pain. Review of Systems Review of Systems: All systems reviewed & are unremarkable except as noted in HPI and below Constitutional: Constitutional: Reports as per HPI and Reports no additional constitutional complaints Eyes: Eyes: Reports as per HPI and Reports no additional eye complaints ENT: Reports system reviewed and no additional complaints, except as documented and Reports as per HPI Cardiovascular: Cardiovascular: Reports as per HPI and Reports no additional cardiovascular complaints Respiratory: Respiratory: Reports as per HPI and Reports no additional respiratory complaints Gastrointestinal: Gastrointestinal: Reports as per HPI and Reports no additional gastrointestinal complaints Genitourinary: Genitourinary: Reports as per HPI Musculoskeletal: Musculoskeletal: Reports no additional musculoskeletal complaints and Reports as per HPI Integumentary/Breasts: Skin/Breast: Reports system reviewed and no additional complaints, except as docu and Reports as per HPI Neurologic: Reports system reviewed and no additional complaints, except as documented and Reports as per HPI Psychiatric: Psychiatric: Reports no additional psychiatric complaints and Reports as per HPI Endocrine: Endocrine: Reports no additional endocrine complaints and Reports as per HPI Hematologic/Lymphatic: Hematologic/Lymphatic: Reports no additional hematologic/lymphatic complaints and Reports as per HPI Allergic/Immunologic: Allergic/Immunologic: Reports no additional allergic/immunologic complaints and Reports as per HPI Exam Narrative: General: Well developed, alert and
--- NOTE | 2022-02-02 10:38 | PM.IMPN ---
Progress Note: A&P Assessment and Plan (1) Atrial fibrillation with rapid ventricular response: Code(s): I48.91 - Unspecified atrial fibrillation Status: Acute Assessment and Plan: Appreciate Cardiology consult. Wean off diltiazem drip. no anticoagulation secondary to recent GI bleed. Patient was previously recommended for a Watchman device (2) Diarrhea: Code(s): R19.7 - Diarrhea, unspecified Status: Acute Assessment and Plan: C diff pending. Diarrhea improving GI consult as patient has had 3 admissions in the last year for lower GI bleed. may need colonoscopy prior to starting anticoagulation for AFib (3) Elevated LFTs: Code(s): R79.89 - Other specified abnormal findings of blood chemistry Status: Acute Assessment and Plan: monitor (4) Hypothyroidism: Code(s): E03.9 - Hypothyroidism, unspecified Status: Acute Assessment and Plan: continue home meds (5) Chronic pain syndrome: Code(s): G89.4 - Chronic pain syndrome Status: Acute (6) Chronic prescription opiate use: Code(s): Z79.891 - residential (current) use of opiate analgesic Status: Acute (7) Hypertension: Code(s): I10 - Essential (primary) hypertension Status: Chronic Assessment and Plan: monitor blood pressure Subjective Date/time seen: 02/02/22 10:38 no complaints Exam Narrative: General: Well-developed female supine in bed. Weight: 91.1 kilograms. BMI: 34.5. HEENT: PERRL, EOMI. Sclera anicteric. Tacky mucous membranes. Neck: Supple. No lymphadenopathy or JVD. Respiratory: Respirations are nonlabored and lungs are clear to auscultation. Cardiovascular: Irregular regular rate and rhythm. Gastrointestinal: Abdomen is soft and nondistended with positive bowel sounds. She is tender to deeper palpation the left lower quadrant. Mild voluntary guarding, no rebound tenderness. Skin: Warm and dry. No rash or lesions on limited exam. Extremities: No cyanosis, clubbing, or edema. Radial and pedal pulses intact. Neurological: Alert. Cranial nerves 2-12 are grossly intact. No gross focal deficits to casual conversation. Psychiatric: Pleasant and cooperative with normal mood and affect. Judgment and insight intact. Objective Data Vital Signs Vital Signs: Vital Signs - 24 hr 02/01/22 12:06 02/01/22 13:59 02/01/22 12:00 Temperature Pulse Rate 111 H 101 H Respiratory Rate Blood Pressure Pulse Oximetry Oxygen Delivery Room Air 02/01/22 12:00 02/01/22 16:09 02/01/22 16:00 Temperature 97.4 F L Pulse Rate 117 H 121 H 124 H Respiratory Rate 20 Blood Pressure 111/77 Pulse Oximetry 92 Oxygen Delivery 02/01/22 20:01 02/01/22 20:00 02/01/22 20:00 Temperature 97.8 F Pulse Rate 108 H 82 130 H Respiratory Rate 18 Blood Pressure 106/79 Pulse Oximetry 95 Oxygen Delivery 02/01/22 20:00 02/01/22 22:00 02/02/22 00:00 Temperature 96.5 F L Pulse Rate 82 51 L 118 H Respiratory Rate 18 18 Blood Pressure 119/67 Pulse Oximetry 95 95 Oxygen Delivery Room Air 02/02/22 04:00 02/02/22 05:35 02/02/22 06:00 Temperature 96.9 F L Pulse Rate 128 H 124 H 56 L Respiratory Rate 16 Blood Pressure 114/86 Pulse Oximetry 95 Oxygen Delivery 02/02/22 08:00 Temperature Pulse Rate Respiratory Rate Blood Pressure Pulse Oximetry Oxygen Delivery Room Air Intake/Output Intake/Output: Intake & Output 01/30/22 01/31/22 02/01/22 02/02/22 23:59 23:59 23:59 23:59 Intake Total 2133 1700 300 Output Total 675 1000 Balance 1458 700 300 Meds/Results Medications: Active Medications Generic Name Dose Route Start Last Admin Trade Name Freq PRN Reason Stop Dose Admin Acetaminophen 650 mg 01/30/22 17:41 Acetaminophen 325 Mg Tablet PO Q4H PRN Mild Pain (1-3) or Fever Hydrocodone Bitart/Acetaminophen 1 tab 01/30/22 21:54 02/01/22
[2022-02-02] MEDS: dilTIAZem HCL 30 MG TABLET PO ×2 (13:07→21:08)
--- NOTE | 2022-02-02 17:01 | PC.NURSE ---
Pt was very agitated that she had not received new medication she was told she would get in the morning. I explained the new medication was not scheduled until 1400 which is why she had not received it. She voiced the conversation about discharge she had with MD in the morning. I followed up with both cardiology and the hospitalitis about plan for D/C. Explained to patient that the doctor does not plan to D/C until at least tomorrow when the HR is more controlled. Pt stated her want to leave, explained she does have the right to sign out against medical advice; however, the doctors do not recommend she leave the hospital yet as she is not stable. She stated she will stay until tomorrow.
[2022-02-02] MEDS: GABAPENTIN 300 MG CAPSULE 900 MG PO (20:51)
[2022-02-02] MEDS: METOPROLOL TARTRATE 50 MG TAB 100 MG PO (20:52)
[2022-02-02] MEDS: QUEtiapine FUMARATE 100 MG TABLET PO (20:52)
[2022-02-02] MEDS: hydrOXYzine HCL 25 MG TABLET PO (20:52)
[2022-02-03] VITALS: PULSE 79
[2022-02-03 04:00] VITALS: PULSE 85
[2022-02-03] MEDS: dilTIAZem HCL 30 MG TABLET PO (05:27)
[2022-02-03] MEDS: LEVOTHYROXINE SODIUM 50 MCG TABLET PO (05:28)
[2022-02-03 06:00] VITALS: BP 125/89; PULSE 63; RESP 14; TEMP 36.1; O2SAT 98
[2022-02-03 07:57] VITALS: PULSE 94
[2022-02-03] MEDS: ATORVASTATIN 20 MG TABLET PO (07:57)
[2022-02-03] MEDS: METOPROLOL TARTRATE 50 MG TAB 100 MG PO (07:57)
[2022-02-03] MEDS: GABAPENTIN 300 MG CAPSULE 600 MG PO (07:57)
[2022-02-03] MEDS: FUROSEMIDE 40 MG TABLET PO (07:57)
[2022-02-03 08:00] VITALS: PULSE 113
--- NOTE | 2022-02-03 09:26 | WPDGIPROGNO ---
Progress Note: A&P Assessment and Plan (1) Diarrhea: Code(s): R19.7 - Diarrhea, unspecified Status: Acute Assessment and Plan: Patient with improving diarrhea. Stool cultures negative to date. I cannot find results of stool for C difficile in chart. Plan to complete course of antibiotics. Stool currently heme-negative. She gives a history of colitis on CT scan with bloody diarrhea at a different institution previous this year. If so this likely was infection that appears to have resolved at present. Elective colonoscopy can be arranged as an outpatient. Should any questions remain. (2) History of GI bleed: Code(s): Z87.19 - Personal history of other diseases of the digestive system Status: Acute Assessment and Plan: No evidence of GI bleed during this admission. This appears to be resolved. Likely had an infection noted at different institution earlier this year. (3) Atrial fibrillation with RVR: Code(s): I48.91 - Unspecified atrial fibrillation Status: Acute Assessment and Plan: Cardiology workup in progress. Subjective Date/time seen: 02/03/22 09:26 Patient comfortable this morning. Reports diarrhea much improved but not totally gone yet. No bleeding reported. No abdominal pain. Tolerating diet. Review of Systems Review of Systems: Review of systems noncontributory. Exam Narrative: Physical exam reveals patient be alert. Vital signs stable. HEENT exam unremarkable. Patient anicteric. Lungs are clear. Heart without murmur. Abdomen soft nontender. Objective Data Vital Signs Vital Signs: Vital Signs - 24 hr 02/02/22 12:00 02/02/22 16:00 02/02/22 20:52 Temperature Pulse Rate 126 H 105 H 116 H Respiratory Rate Blood Pressure Pulse Oximetry Oxygen Delivery 02/02/22 20:00 02/02/22 21:24 02/02/22 20:00 Temperature 97.1 F L Pulse Rate 116 H 86 86 Respiratory Rate 16 14 Blood Pressure 125/62 Pulse Oximetry 95 96 Oxygen Delivery Room Air 02/03/22 00:00 02/03/22 04:00 02/03/22 06:00 Temperature 96.9 F L Pulse Rate 79 85 63 Respiratory Rate 14 Blood Pressure 125/89 Pulse Oximetry 98 Oxygen Delivery 02/03/22 07:57 Temperature Pulse Rate 94 Respiratory Rate Blood Pressure Pulse Oximetry Oxygen Delivery Intake/Output Intake/Output: Intake & Output 01/31/22 02/01/22 02/02/22 02/03/22 23:59 23:59 23:59 23:59 Intake Total 2133 1700 2240 990 Output Total 675 1000 300 Balance 6271 997 4285 690 Meds/Results Medications: Active Medications Generic Name Dose Route Start Last Admin Trade Name Freq PRN Reason Stop Dose Admin Acetaminophen 650 mg 01/30/22 17:41 Acetaminophen 325 Mg Tablet PO Q4H PRN Mild Pain (1-3) or Fever Hydrocodone Bitart/Acetaminophen 1 tab 01/30/22 21:54 02/01/22 20:01 Hydrocodone/Acetaminophen (*Crx) 10-325 Mg Tablet PO 1 tab Q4-6H PRN Administration Pain (Scale Score 4-6) Atorvastatin Calcium 20 mg 01/31/22 09:00 02/03/22 07:57 Atorvastatin 20 Mg Tablet PO 20 mg DAILY ERI Administration Diltiazem HCl 30 mg 02/02/22 14:00 02/03/22 05:27 Diltiazem Hcl 30 Mg Tablet PO 30 mg Q8HR ERI Administration Furosemide 40 mg 01/31/22 09:00 02/03/22 07:57 Furosemide 40 Mg Tablet PO 40 mg DAILY ERI Administration Gabapentin 600 mg 01/31/22 09:00 02/03/22 07:57 Gabapentin 300 Mg Capsule PO 600 mg QAM ERI Administration Gabapentin 900 mg 01/30/22 21:55 02/02/22 20:51 Gabapentin 300 Mg Capsule PO 900 mg QHS ERI Administration Hydroxyzine HCl 25 mg 01/30/22 22:00 02/02/22 20:52 Hydroxyzine Hcl 25 Mg Tablet PO 25 mg HS ERI Administration Levothyroxine Sodium 50 mcg 01/31/22 06:30 02/03/22 05:28 Levothyroxine Sodium 50 Mcg Tablet PO 50 mcg DAILY@0630 ERI Administration Metoprolol Tartrate 100 mg 02/02/22 21:00 02/03/22 07:57 Metoprolol Tartr
--- NOTE | 2022-02-03 10:57 | PM.PNCARD ---
Progress Note: A&P Assessment and Plan (1) Atrial fibrillation with rapid ventricular response: Code(s): I48.91 - Unspecified atrial fibrillation Status: Acute Plan 66-year-old lady with atrial fibrillation rate is well controlled. She is a good candidate for discharge today. We will see her in the office for follow-up after she has her appointment at [facility] with structural consulted to consider left atrial appendage occlusion as an option for her. She was started on short-acting diltiazem yesterday by my nurse practitioner. For convenience I will change that to long-acting diltiazem CD at the time of discharge at the equivalent dosage. Grzegorz Hutton MD [facility] Subjective Date/time seen: Date of service:02/03/22 10:57 Interval history: Follow-up visit in this 66-year-old lady with persistent atrial fibrillation being treated with rate control. Not a candidate for anticoagulation as mentioned in previous notes. She does have a referral to see a structural warm in worker at [facility] and later this month to consider her as a candidate for left atrial appendage occlusion. She was admitted here to the hospital earlier this week with diarrhea. In that setting she had a RVR with her atrial fib. Metoprolol dosage has been advanced and she has also been placed on small dose of diltiazem. Rate is very well controlled. She is expecting to be discharged today. Exam Narrative: General: Well developed, alert and oriented x3. No apparent distress, comfortable, pleasant, and cooperative. Head: atraumatic, normocephalic Eyes: EOM intact, sclerae anicteric, conjunctivae unremarkable Ears/Nose: external inspection of ears and nose were grossly normal Mouth/Throat: oral mucosa pink and moist Neck: supple, normal range of motion, no jugular venous distention or carotid bruits, thyroid nonpalpable, trachea midline. Cardiac: Tachycardic, irregular irregular rate and rhythm, normal S1-S2, no appreciable murmurs Lungs: Clear to auscultation bilaterally, no rales, wheezes, or rhonchi. Abdomen: Obese, Soft, nontender, nondistended, positive bowel sounds throughout. No rebound guarding or rigidity noted. Extremities: No edema, no clubbing, or cyanosis. Extremities warm and well perfused. Skin: Warm and dry without ecchymoses, rashes, and/or petechiae. Musculoskeletal: Muscle strength and tone intact throughout without obvious deformities. Vascular: Carotid upstrokes 2+ bilaterally, radial pulses 2+ bilaterally, dorsalis pedis pulses 1+ bilaterally Neurologic: Cranial nerves 2-12 grossly intact, examination grossly nonfocal Psychiatric: Mood calm and appropriate. Objective Data Vital Signs Vital Signs: Vital Signs - 24 hr 02/02/22 12:00 02/02/22 16:00 02/02/22 20:52 Temperature Pulse Rate 126 H 105 H 116 H Respiratory Rate Blood Pressure Pulse Oximetry Oxygen Delivery 02/02/22 20:00 02/02/22 21:24 02/02/22 20:00 Temperature 36.2 C L Pulse Rate 116 H 86 86 Respiratory Rate 16 14 Blood Pressure 125/62 Pulse Oximetry 95 96 Oxygen Delivery Room Air 02/03/22 00:00 02/03/22 04:00 02/03/22 06:00 Temperature 36.1 C L Pulse Rate 79 85 63 Respiratory Rate 14 Blood Pressure 125/89 Pulse Oximetry 98 Oxygen Delivery 02/03/22 07:57 02/03/22 08:00 Temperature Pulse Rate 94 Respiratory Rate Blood Pressure Pulse Oximetry Oxygen Delivery Room Air Intake/Output Intake/Output: Intake & Output 01/31/22 02/01/22 02/02/22 02/03/22 23:59 23:59 23:59 23:59 Intake Total 2133 1700 2240 990 Output Total 675 1000 300 Balance 7372 968 8897 690 Meds/Results Medications: Active Medications Generic Name Dose Route Start Last Admin Trade Name Freq PRN Reason Stop Dose Admin Acetaminophen 650 mg 01/30/22 17:41 Acetaminophen 325 Mg Tablet PO Q4H PRN Mild Pain (1-3) or Fever
--- NOTE | 2022-02-03 11:15 | PM.DS ---
DS: Admitting Diagnosis Discharge Date February 03, 2022 Admitting Diagnosis AFib DS: Discharge Diagnosis Discharge Diagnosis (1) Atrial fibrillation with rapid ventricular response: Code(s): I48.91 - Unspecified atrial fibrillation Status: Acute Assessment and Plan: Appreciate Cardiology consult. Wean off diltiazem drip. no anticoagulation secondary to recent GI bleed. Patient was previously recommended for a Watchman device (2) Diarrhea: Code(s): R19.7 - Diarrhea, unspecified Status: Acute Assessment and Plan: C diff pending. Diarrhea improving GI consult as patient has had 3 admissions in the last year for lower GI bleed. may need colonoscopy prior to starting anticoagulation for AFib (3) Elevated LFTs: Code(s): R79.89 - Other specified abnormal findings of blood chemistry Status: Acute Assessment and Plan: monitor (4) Hypothyroidism: Code(s): E03.9 - Hypothyroidism, unspecified Status: Acute Assessment and Plan: continue home meds (5) Chronic pain syndrome: Code(s): G89.4 - Chronic pain syndrome Status: Acute (6) Chronic prescription opiate use: Code(s): Z79.891 - [facility] (current) use of opiate analgesic Status: Acute (7) Hypertension: Code(s): I10 - Essential (primary) hypertension Status: Chronic Assessment and Plan: monitor blood pressure DS: Summary Hospital Course Hospital Course: Patient is a 66-year-old female came in for diarrhea loose stools and was found to be in atrial fibrillation. After being admitted her diarrhea subsequently resolved. Patient reports to 3 admissions in the last year for diarrhea and lower GI bleed. She will need follow-up with GI for colonoscopy as an outpatient. CT scan here did not reveal any colitis. Her atrial fibrillation was originally hard to control but now her rates are controlled on metoprolol and Cardizem. Patient will not be started on anticoagulation as of yet until she has her follow-up with her GI physician for her colonoscopy. Patient will also follow-up with Cardiology. Time Spent with Patient Time attestation: Total time spent providing and/or coordinating discharge services: Exam Narrative: General: Well-developed female supine in bed. Weight: 91.1 kilograms. BMI: 34.5. HEENT: PERRL, EOMI. Sclera anicteric. Tacky mucous membranes. Neck: Supple. No lymphadenopathy or JVD. Respiratory: Respirations are nonlabored and lungs are clear to auscultation. Cardiovascular: Irregular regular rate and rhythm. Gastrointestinal: Abdomen is soft and nondistended with positive bowel sounds. She is tender to deeper palpation the left lower quadrant. Mild voluntary guarding, no rebound tenderness. Skin: Warm and dry. No rash or lesions on limited exam. Extremities: No cyanosis, clubbing, or edema. Radial and pedal pulses intact. Neurological: Alert. Cranial nerves 2-12 are grossly intact. No gross focal deficits to casual conversation. Psychiatric: Pleasant and cooperative with normal mood and affect. Judgment and insight intact. Discharge Plan Discharge Attending physician on discharge: Grzegorz Marie Consulting providers: Ben Mendieta ; Grzegorz Hutton Discharging Clinician: Grzegorz Marie Patient Disposition: Home, Self-Care Activity: no preference Diet: as tolerated Patient Instructions: Antibiotic Form, How to Stop Smoking (GEN) Stand Alone Forms: General Discharge Information Follow-up/Referrals: Ben Mendieta MD [Physician] - Grzegorz Hutton MD [Physician] - Silvia,Shayne Flores MD [Primary Care Provider] - Discharge Medications: New diltiazem HCl 120 mg Capsule,Extended Release 24 Hr 120 mg PO QAM 30 Days Qty: 30 0RF metoprolol tartrate 50 mg Tablet 100 mg PO Q12HR 30 Days Qty: 120 0RF Continued furosemide 40 mg tablet 40 mg PO DAILY atorv
== END 2022-02-03 11:25 | disposition home or self-care (01) | DRG 310 ==
LOC: ANHED 16:06 → ANHIMU 18:20 → ANH3MEDSUR 02-01 21:17
PROVIDERS: Physician Assistant; Preventive Medicine Aerospace Medicine; Admitting Provider Internal Medicine; Emergency Provider Emergency Medicine; PCP Family Medicine Sports Medicine; Visit Provider Chiropractor
DX: I48.91 Unspecified atrial fibrillation (principal); R19.7 Diarrhea, unspecified; R79.89 Other specified abnormal findings of blood chemistry; E03.9 Hypothyroidism, unspecified; I10 Essential (primary) hypertension; G89.4 Chronic pain syndrome; E78.5 Hyperlipidemia, unspecified; F17.210 Nicotine dependence, cigarettes, uncomplicated; Z96.653 Presence of artificial knee joint, bilateral; Z96.649 Presence of unspecified artificial hip joint; Z23 Encounter for immunization; Z79.891 Long term (current) use of opiate analgesic; Z90.79 Acquired absence of other genital organ(s); Z98.49 Cataract extraction status, unspecified eye; Z96.1 Presence of intraocular lens; Z85.3 Personal history of malignant neoplasm of breast; Z86.19 Personal history of other infectious and parasitic diseases; Z87.19 Personal history of other diseases of the digestive system
CPT/HCPCS: 36415; 71046; 74176; 80048; 80053; 82274; 83690; 83735; 84439; 84443; 84480; 84484; 85025; 85610; 85730; 86140; 87269; 87272; 89055; 90471; 90686; 93005; 94762; 96365; 96366; 96375; 96376; 99285; A9270; G0008; G0378; J2270; J3475; J7050

== ENCOUNTER 2022-05-07 01:34 | Day surgery (SDC) | payer OTHER, SELFPAY ==
[2022-05-04 16:32] VITALS: BMI 35.2
[2022-05-07] VITALS (10 sets, daily range): BP systolic 89–126; BP diastolic 57–87; PULSE 51–89; RESP 12–16; TEMP 36.2; O2SAT 92–96; BMI 34.8
[2022-05-07 07:26] LABS: Basophils Absolute Auto 0.1 K/mm3 (0.0-0.1); Basophils Percent Auto 0.6 % (0.2-1.2); Eosinophils Absolute Auto 0.3 K/mm3 (0-0.3); Eosinophils Percent Auto 3.9 % (0-4.4); Hematocrit 40.9 % (37.0-47.0); Hemoglobin 13.7 g/dL (12.0-15.0); Immature Granulocyte Absolute 0.02 K/mm3 (0.00-0.031); Immature Granulocyte Percent A 0.2 % (0-0.5); Lymphocytes Absolute Auto 2.33 K/mm3 (0.9-3.2); Mean Corpuscular HGB Conc 33.5 g/dl (32-36); Mean Corpuscular Volume 89.5 fl (80-100); Mean Platelet Volume 8.8 fl (7.4-10.4); Monocytes Absolute Auto 0.6 K/mm3 (0.1-0.6); Monocytes Percent Auto 7.1 % (2.6-8.5); Neutrophils Absolute Auto 5.3 K/mm3 (1.3-6.7); Neutrophils Percent Auto 61.2 % (45.5-73.1); Platelet Count Result 270 k/mm3 (150-375); Red Blood Count 4.57 M/mm3 (4.2-5.4); Red Cell Distribution Width 13.4 % (11.5-14.5); White Blood Count 8.6 K/mm3 (4.5-10.0)
[2022-05-07 07:37] LABS: Anion Gap 8 mmol/L (8-16); Blood Urea Nitrogen 23 mg/dL (7-17); Calcium 9.2 mg/dL (8.4-10.2); Carbon Dioxide 29 mmol/L (22-30); Chloride 101 mmol/L (98-107); Estimated CRCL calculation 59 ml/min; Estimated Glomerular Filt Rate > 60; Glucose 112 mg/dL (65-110); Potassium 4.5 mmol/L (3.4-5.0); Sodium 138 mmol/L (137-145)
--- NOTE | 2022-05-07 09:38 | WPDCARDPROC ---
Cardiac Cath Procedure Note Date of procedure:: 05/07/22 Performing physician:: Grzegorz Hutton MD Indication:: Persistent atrial fibrillation shortness of breath history of smoking concern regarding pulmonary hypertension Brief clinical history:: this is a 67-year-old woman who was been followed in the office for a number of years with chronic aortic valve regurgitation which is felt to be mild. She recently developed atrial fibrillation in 2021 and unfortunately at the also had developed lower GI bleeding preventing systemic anticoagulation. She has been smoking for many years. She is experiencing symptoms of worsening shortness of breath and echocardiography has suggested that she may have significant pulmonary hypertension. She is being scheduled for left atrial appendage occlusion procedure elsewhere. In this setting right and left heart catheterization has been recommended to further evaluate her hemodynamics is scheduled for today. Procedure Procedure performed:: Right heart catheterization left heart catheterization with left ventriculography and coronary angiography Angio-Seal to right femoral artery Sedation/Medication given:: fentanyl 25 mg Versed 2 mg case start time 8:53 a.m. case end time 9:27 a.m. sedation provided by Arabella Wilson RN, trained observer Access site:: right femoral artery right femoral vein Estimated blood loss:: 25 cc Procedure note:: patient was brought to the cardiac catheterization lab in the postabsorptive state where the right femoral triangle was prepared and draped in the normal fashion. Anesthesia was provided with 1% lidocaine infiltrated locally. Using the modified Seldinger technique the femoral vein was punctured and a 7 [place] vascular sheath was placed. The femoral artery was then punctured and a 5 [place] vascular sheath was placed. I used AC tipped Randall-Meliton catheter to collect right-sided hemodynamics, collect saturation in the right heart chambers as well as the pulmonary artery and measure av O2 difference. Mehul cardiac output was calculated. Following this the PA catheter was removed. I used a 5 [place] angled pigtail catheter to measure left-sided hemodynamics root and left ventricular pressure and inject the left ventriculogram in projection. Following this the left coronary artery was engaged and injected using 5 [place] FL4 catheter. The right coronary artery was engaged and injected using a 5 [place] JR4 catheter. The femoral artery was then the arterial catheter and an Angio-Seal device was deployed with a good hemostatic result. The pressure was held in the laborer shellfish processing in the venous sheath was removed while this was being performed. Procedure was well tolerated and uncomplicated she left the laborer shellfish processing with no evidence of groin hematoma. Findings:: Hemodynamics: Right atrial pressure is 12 mm Hg, right ventricle 45 over 10 end-diastolic 17, pulmonary [id number], pulmonary capillary wedge [id number], central aorta 116/70, left [id number] end-diastolic pressure 23. Mehul cardiac output is 4.0 liters/minute giving an index of 2.0. Right atrium saturation 55, right ventricle 53, pulmonary artery 53, central aorta 86.9 On room air. Left ventricle: The LV is normal in size. All segments appear to contract appropriately the global ejection fraction I would visually estimate to be 45%. The left main coronary artery is short but nicely patent the left anterior descending medium caliber vessel proximally it is small in caliber in the mid distal portions. Angiographically the LAD in its branches are free of disease. The circumflex is a large caliber vessel dominant to the posterior circulation. The circumflex its marginal and posterior branches are angiographically Normal in appearance and free of disease. The right coronary artery small in caliber non dominant vessel giving rise to 2 small RV branches the right coronary is free of disease
--- NOTE | 2022-05-07 10:48 | SUR.PHASEII ---
dr bryant in speaking with patient and daughter
== END 2022-05-07 12:35 | disposition home or self-care (01) ==
PROVIDERS: PCP Family Medicine Sports Medicine; Visit Provider Specialist
PROC: 4A023N8 Measurement of Cardiac Sampling and Pressure, Bilateral, Percutaneous Approach (ICD-10-PCS; CPT 93453; principal; 2022-05-07 08:30)
DX: I48.19 Other persistent atrial fibrillation (principal); R06.02 Shortness of breath; I35.1 Nonrheumatic aortic (valve) insufficiency
CPT/HCPCS: 36415; 80048; 85025; 93460; C1760; C1887; C1894; G0269; J1644; J2250; J3010; J7040